=== PATIENT | male | born 1975 | race Caucasian/White ===

== ENCOUNTER 2018-01-10 11:09 | Inpatient (IN) | payer OTHER ==
[~2018-01-10] VITALS: Ht 185.4 cm; Wt 113.4 kg
[~2018-01-10 11:09] MED LIST: ADVIL200 M1 PO; CRESTOR10 M1 PO; DEXTROAMP-AMPHE20 MG PO; SUBOXONE 8 MG-1 EACH SL
[2018-01-10 12:19] LABS: ABSOLUTE BASOPHIL COUNT 0.1 /CUMM (0.0-0.2); ABSOLUTE EOSINOPHIL COUNT 0 /CUMM (0.0-0.7); ABSOLUTE GRANULOCYTE CT 14.7 /CUMM (1.4-6.5); ABSOLUTE LYMPH COUNT 2.1 /CUMM (1.2-3.4); ABSOLUTE MONOCYTE COUNT 1.2 /CUMM (0.10-0.60); BASOPHIL % 0.6 % (0.0-2.0); EOSINOPHIL % 0 % (0-5); GRANULOCYTE % 81.1 % (42.2-75.2); HEMATOCRIT 47.3 % (42-52); MEAN CORPUSCULAR HGB 27.2 PG (27.0-31.0); MEAN CORPUSCULAR HGB CONC 32.7 G/DL (33.0-37.0); MEAN CORPUSCULAR VOLUME 83.2 FL (80.0-94.0); MEAN PLATELET VOLUME 7.2 FL (7.4-10.4); PLATELET COUNT 316 /CUMM (130-400); RBC DISTRIBUTION WIDTH 14.6 % (11.5-14.5); RED BLOOD CELL CT 5.69 /CUMM (4.70-6.10); WHITE BLOOD CELL COUNT 18.1 /CUMM (4.8-10.8)
[2018-01-10 12:35] VITALS: BP 141/91
[2018-01-10] MEDS ORDERED: GABAPENTIN300 M2 PO (12:44)
[2018-01-10] MEDS ORDERED: TRAZODONE HCL100 M1 PO (12:44)
[2018-01-10] MEDS ORDERED: QUETIAPINE FUM200 M1 PO (12:44)
--- NOTE | 2018-01-10 14:20 | ED GENERAL ADULT ---
History of Present Illness General Chief Complaint: General Adult Stated Complaint: ETOH WITH DRAWL /? FLU/URI Source: patient, family Exam Limitations: no limitations Allergies Coded Allergies: No Known Allergies (02/26/16) Reconcile Medications Gabapentin 300 MG CAPSULE 1 CAP PO TID SEIZURES (Reported) Quetiapine Fumarate 200 MG TABLET 1 TAB PO QHS MENTAL HEALTH/SLEEP (Reported) Trazodone HCl 100 MG TABLET 1 TAB PO QHS MENTAL HEALTH/SLEEP (Reported) Triage Note: PT IS REQUESTING EVALUATION FOR ETOH DETOX. AN AVERAGE OF A GALLON OF WHISKEY FOR THE PAST WEEK. ALSO REPORTS DIARRHEA AND VOMITING X 2 DAYS. MULTIPLE FAMILY MEMBERS HAVE BEEN ILLED WITH THE SAME SYMPTOMS. Triage Nurses Notes Reviewed? yes Onset: Abrupt Duration: day(s): (1-2), constant, continues in ED, getting worse Timing: recent history Injury Environment: home Severity: moderate, severe No Modifying Factors: none HPI: 22-year-old male past medical history of alcohol dependence and bipolar disorder presents for evaluation requesting alcohol detox. Patient states that he has been drinking regularly for the past several months. He states he drinks a gallon of whiskey daily. He states that he drank a gallon of whiskey yesterday and this morning drank a bottle of Listerine. He reports that he does have a history of alcohol withdrawal seizures. He feels like he is in withdrawal now reporting anxiety headaches nausea vomiting and diarrhea. He is not suicidal or homicidal. No chest pain shortness of breath palpitations drug use. No hallucinations. No recent travel recent antibiotics. He does report sick contacts in his family with nausea vomiting and diarrhea. No abdominal pain. No fever. (Benedicto Zurita) Vital Signs & Intake/Output Vital Signs & Intake/Output Vital Signs Date Time Temp Pulse Resp B/P B/P Pulse O2 O2 Flow FiO2 Mean Ox Delivery Rate 01/10 1444 978.0 98 18 158/101 01/10 1235 97.9 115 18 141/91 01/10 1215 98 01/10 1115 97.9 115 16 141/91 Room Air (Dariana RICHARD,Jorge Varela) Past History Travel History Traveled to [place] past 21 day No Medical History Any Pertinent Medical History? see below for history Neurological: NONE EENT: NONE Cardiovascular: HIGH CHOLESTEROL Respiratory: NONE Gastrointestinal: NONE Hepatic: NONE Renal: NONE Musculoskeletal: NONE Psychiatric: bipolar disease (? ), opioid dependence, ADHD Endocrine: NONE Surgical History Surgical History: non-contributory Psychosocial History What is your primary language Mongolian Tobacco Use: Current Daily Use Daily Tobacco Use Amount/Type: => 5 Cigarettes daily Family History Hx Contributory? No (Benedicto Zurita) Review of Systems Review of Systems Constitutional: Reports: no symptoms. EENTM: Reports: no symptoms. Respiratory: Reports: no symptoms. Cardiovascular: Reports: no symptoms. GI: Reports: see HPI, diarrhea, nausea, vomiting. Genitourinary: Reports: no symptoms. Musculoskeletal: Reports: no symptoms. Skin: Reports: no symptoms. Neurological/Psychological: Reports: see HPI, headache. Hematologic/Endocrine: Reports: no symptoms. Immunologic/Allergic: Reports: no symptoms. All Other Systems: Reviewed and Negative (Benedicto Zurita) Physical Exam Physical Exam General Appearance: well developed/nourished, alert, awake, anxious, mild distress Head: atraumatic, normal appearance Eyes: Bilateral: normal appearance, PERRL, EOMI. Ears, Nose, Throat: normal pharynx, normal ENT inspection, hearing grossly normal Neck: normal inspection, supple, full range of motion Respiratory: normal breath sounds, chest non-tender, no respiratory distress, lungs clear Cardiovascular: regular rate/rhythm, normal peripheral pulses Peripheral Pulses: 2+ radial (R), 2+ radial (L) Gastrointestinal: normal bowel sounds, soft, non-tender, no organomegaly Back: normal inspection, normal range of motion, no vertebral tenderness Extremities: normal inspection, normal range of motion, no edema Neurologic/Psych: no motor/sensory deficits, awake, alert, oriented x 3, normal gait Skin: intact, normal color, warm/dry Lymphatic: no anterior cervical shilpa Core Measures ACS in differential dx? No CVA/TIA Diagnosis: No Sepsis Present: No Sepsis Focused Exam Completed? No (Benedicto Zurita) Progress Differential Diagnoses I considered the following diagnoses in my evaluation of the patient: [Alcohol withdrawal, alcohol intoxication, drug withdrawal, drug intoxication, electrolyte N O'Zhang, gastroenteritis, pancreatitis, alcoholic gastritis, alcoholic hepatitis] Initial ED EKG: none (Benedicto Zurita) Plan of Care: Orders Procedure Date/time Status Clear Liquid Diet 01/10 D Active Patient Data 01/10 1532 Active EKG 01/10 1532 Active Misc Message 01/10 1531 Active ED Holding Orders 01/10 1531 Active Admit to inpatient 01/10 1531 Active Vital Signs 01/10 1531 Active Code Status 01/10 1531 Active Add-on Test (ER Only) 01/10 1153 Active CIWA 01/10 1152 Active URINE DRUG SCREEN FOR ER ONLY 01/10 1119 Complete URINALYSIS 01/10 1119 Complete MAGNESIUM 01/10 1119 Complete LIPASE 01/10 1119 Complete ETHANOL 01/10 1119 Complete COMPREHENSIVE METABOLIC PANEL 01/10 1119 Complete CBC WITHOUT DIFFERENTIAL 01/10 1119 Complete Laboratory Tests 01/10/18 1212: Anion Gap 25 H, Estimated GFR > 60, BUN/Creatinine Ratio 13.8, Glucose 118 H, Calcium 9.3, Magnesium 2.3, Total Bilirubin 1.2, AST 80 H, ALT 69, Alkaline Phosphatase 129 H, Total Protein 7.7, Albumin 4.6, Globulin 3.1, Albumin/ Globulin Ratio 1.5, Lipase 50, CBC w Diff MAN DIFF ORDERED, RBC 5.69, MCV 83.2, MCH 27.2, MCHC 32.7 L, RDW 14.6 H, MPV 7.2 L, Gran % 81.1 H, Lymphocytes % 11.7 L, Monocytes % 6.6, Eosinophils % 0, Basophils % 0.6, Absolute Granulocytes 14.7 H, Absolute Lymphocytes 2.1, Absolute Monocytes 1.2 H, Absolute Eosinophils 0, Absolute Basophils 0.1, Platelet Estimate ADEQUATE, Normocytic RBCs VERIFIED, Normochromic RBCs VERIFIED, Serum Alcohol 135.0 01/10/18 1146: Urine Opiates Screen < 100, Methadone Screen < 40, Barbiturate Screen < 60, Ur Phencyclidine Scrn < 6.00, Amphetamines Screen 261, U Benzodiazepines Scrn < 85, Urine Cocaine Screen < 50, Urine Cannabis Screen 75.60 H, Urine Color YEL, Urine Clarity CLEAR, Urine pH 6.0, Ur Specific [place] >= 1.030, Urine Protein 30 H, Urine Ketones 15 H, Urine Nitrite NEG, Urine Bilirubin NEG, Urine Urobilinogen 0.2, Ur Leukocyte Esterase NEG, Ur Microscopic SEDIMENT EXAMINED, Urine RBC RARE, Urine WBC RARE, Ur Epithelial Cells RARE, Urine Bacteria RARE H , Hyaline Casts RARE H, Granular Casts 1-3 H, Urine Mucus MOD H, Urine Hemoglobin NEG, Urine Glucose NEG Patient seen and evaluated. He is here requesting alcohol detox. He is not suicidal or homicidal. He does note a history of alcohol withdrawal seizures. On initial evaluation patient is slightly tachycardic to the 1 teens she is actively vomiting reporting anxiety and headaches. Initial CIWA was 12. He was given 2 mg of IV Ativan IV fluids and will check basic labs. Blood work shows an alcohol level of 135. His potassium is low. He has an elevated white count. His belly is soft and nontender. He continues to vomit. Repeat CIWA is 15. Because of patient's history of alcohol withdrawal seizures and the CIWA level of 15 patient will be admitted to the hospital for further evaluation. He was monitored in the ER for 4-1/2 hours. With that initial alcohol level 135 SHOULD mean he is clinically sober now. Patient will be admitted to the hospital for further evaluation and treatment of alcohol withdrawal hypokalemia and dehydration. He will require IV fluids, serial labs, CIWA exams, IV Ativan and monitoring of vital signs case discussed with Dr. Westbrook he agrees (Benedicto Zurita) (Dariana RICHARD,Jorge Varela) Departure Departure Disposition: STILL A PATIENT Condition: Stable Clinical Impression Primary Impression: Alcohol withdrawal Qualifiers: Complication of substance-induced condition: uncomplicated Qualified Code: F10.230 - Alcohol dependence with withdrawal, uncomplicated Referrals: Patient Has No Primary Care Dr (PCP/Family) Departure Forms: Customer Survey General Discharge Information Admission Note Spoke With: Reed Sagastume MD Documentation of Exam: Documentation of any treatments & extenuating circumstances including Concerns Regarding Discharge (functional status, medication knowledge or non-compliance, living conditions, etc.) that warrant an admission rather than observation: [ CIWA exams, serial labs, IV fluids, anti-emetics, IV Ativan, monitoring of vital signs] (Benedicto Zurita) PA/WOOD GRAINER Co-Sign Statement Statement: ED Attending supervision documentation- [] I saw and evaluated the patient. I have also reviewed all the pertinent lab results and diagnostic results. I agree with the findings and the plan of care as documented in the PA's/WOOD GRAINER's documentation. [X] I have reviewed the ED Record and agree with the PA's/WOOD GRAINER's documentation. [] Additions or exceptions (if any) to the PAs/WOOD GRAINER's note and plan are summarized below: [] (Dariana RICHARD,Jorge Varela) Critical Care Note Critical Care Note Critical Care Time: non-applicable (Tyler CHEUNG,Benedicto)
[2018-01-10 14:44] VITALS: BP 158/101
--- NOTE | 2018-01-10 15:37 | History & Physical ---
Blake RICHARD,[facility] 01/10/18 1537: General Information and HPI MD Statement: I have seen and personally examined TIM CATHERINE and documented this H&P. The patient is a 42 year old M who presented with a patient stated chief complaint of {alcohol withdrawal]. Source of Information: patient Exam Limitations: not alert/orientated History of Present Illness: The patient is 42-year-old gentleman with past medical history of alcohol abuse disorder, alcohol withdrawal seizure, insomnia and depression He presented to [place] ED on 01/10 requesting detoxification Patient states that he drinks 1 gallon of whiskey everyday. Last drink was this morning. Patient admits to drinking heavily for past 1 week and lately has been requiring eyeopener everyday. Patient has been hospitalized once in the past year for alcohol detoxification at [facility]. Patient reports that he has never required an ICU admission. Does not give any history of delirium tremors however reports alcohol withdrawal seizures. Patient reports being overwhelmed and under a lot of stress. He lives by himself. He is in his son lives with his ex-. Patient reports having loose bowel movements for past few days. His son and multiple family members have been sick with stomach flu. He reports being very nauseous andalso reports a couple of episodes of vomiting at home as well. Patient states that he is on gabapentin because of alcohol withdrawal seizures started by his primary care doctor?. He is also on Quetiapine for depression. Denies any suicidal ideation or any homicidal ideation. Patient states that he smokes one pack a day and has been smoking for last 14 years also admits to occasional use of marijuana. Allergies/Medications Allergies: Coded Allergies: No Known Allergies (02/26/16) Home Med list Gabapentin 300 MG CAPSULE 1 CAP PO TID SEIZURES (Reported) Quetiapine Fumarate 200 MG TABLET 1 TAB PO QHS MENTAL HEALTH/SLEEP (Reported) Trazodone HCl 100 MG TABLET 1 TAB PO QHS MENTAL HEALTH/SLEEP (Reported) Past History Travel History Traveled to [place] past 21 day No Medical History Neurological: NONE EENT: NONE Cardiovascular: HIGH CHOLESTEROL Respiratory: NONE Gastrointestinal: NONE Hepatic: NONE Renal: NONE Musculoskeletal: NONE Psychiatric: bipolar disease (? ), opioid dependence, ADHD Endocrine: NONE Surgical History Surgical History: non-contributory Past Family/Social History Family History Relations & Conditions if any MOTHER (HLD). Psychosocial History Where do you live? Home Who Do You Live With? self Primary Language: Divehi Smoking Status: Current Everyday Smoker ETOH Use: alcoholic Illicit Drug Use: marijuana Functional Ability ADLs Independent: dressing, eating, toileting, bathing. Ambulation: independent IADLs Independent: shopping, housework, finances, food prep, telephone, transportation , medication admin. Review of Systems Review of Systems Constitutional: Reports: see HPI. Cardiovascular: Reports: no symptoms. Denies: chest pain, palpitations. GI: Reports: no symptoms. Exam & Diagnostic Data Last 24 Hrs of Vital Signs/I&O Vital Signs Date Time Temp Pulse Resp B/P B/P Pulse O2 O2 Flow FiO2 Mean Ox Delivery Rate 01/10 1444 978.0 98 18 158/101 01/10 1235 97.9 115 18 141/91 01/10 1215 98 01/10 1115 97.9 115 16 141/91 Room Air Intake & Output 01/10 1600 01/10 0800 01/10 0000 Intake Total 1000 Output Total Balance 1000 Intake, IV 1000 Patient 260 lb Weight Weight Reported by Patient Measurement Method Physical Exam General Appearance Alert, Oriented X3, Cooperative Skin No Rashes, No Breakdown HEENT Atraumatic Cardiovascular No Murmurs Lungs Clear to Auscultation, Normal Air Movement Abdomen Normal Bowel Sounds, Soft, No Tenderness Neurological Normal Speech, Strength at 5/5 X4 Ext, Normal Tone Last 24 Hrs of Labs/Severiano: Laboratory Tests 01/10/18 1212: Anion Gap 25 H, Estimated GFR > 60, BUN/Creatinine Ratio 13.8, Glucose 118 H, Calcium 9.3, Magnesium 2.3, Total Bilirubin 1.2, AST 80 H, ALT 69, Alkaline Phosphatase 129 H, Total Protein 7.7, Albumin 4.6, Globulin 3.1, Albumin/ Globulin Ratio 1.5, Lipase 50, CBC w Diff MAN DIFF ORDERED, RBC 5.69, MCV 83.2, MCH 27.2, MCHC 32.7 L, RDW 14.6 H, MPV 7.2 L, Gran % 81.1 H, Lymphocytes % 11.7 L, Monocytes % 6.6, Eosinophils % 0, Basophils % 0.6, Absolute Granulocytes 14.7 H, Absolute Lymphocytes 2.1, Absolute Monocytes 1.2 H, Absolute Eosinophils 0, Absolute Basophils 0.1, Platelet Estimate ADEQUATE, Normocytic RBCs VERIFIED, Normochromic RBCs VERIFIED, Serum Alcohol 135.0 01/10/18 1146: Urine Opiates Screen < 100, Methadone Screen < 40, Barbiturate Screen < 60, Ur Phencyclidine Scrn < 6.00, Amphetamines Screen 261, U Benzodiazepines Scrn < 85, Urine Cocaine Screen < 50, Urine Cannabis Screen 75.60 H, Urine Color YEL, Urine Clarity CLEAR, Urine pH 6.0, Ur Specific [place] >= 1.030, Urine Protein 30 H, Urine Ketones 15 H, Urine Nitrite NEG, Urine Bilirubin NEG, Urine Urobilinogen 0.2, Ur Leukocyte Esterase NEG, Ur Microscopic SEDIMENT EXAMINED, Urine RBC RARE, Urine WBC RARE, Ur Epithelial Cells RARE, Urine Bacteria RARE H , Hyaline Casts RARE H, Granular Casts 1-3 H, Urine Mucus MOD H, Urine Hemoglobin NEG, Urine Glucose NEG Diagnostic Data CXR Results IMPRESSION: No acute cardiopulmonary disease. Assessment/Plan Assessment: The patient is 42-year-old gentleman with past medical history of alcohol abuse disorder, alcohol withdrawal seizure, insomnia and depression He presented to [place] ED on 01/10 requesting detoxification Vitals on presentation tachycardic at 115 elevated blood pressure 141/91 Admission labs are significant for leukocytosis 18.1, no bands, hypokalemia, transaminitis mild AST 80 alkaline phosphate 129, serum alcohol 135, urine cannabis screen positive The patient is being admitted to general medicine floor and he will be treated and evaluated for following conditions #Alcohol detoxification -Monitoring vitals -CIWA -Ativan per CIWA -Ativan 2 mg q8 -Multivitamin -Folic acid -Thiamine -Social work consult -Psych evaluation -Monitor for DTs and withdrawal seizures #Hypokalemia Likely secondary to alcohol abuse disorder -Monitor and replete #Mild transaminitis Likely secondary to alcohol abuse disorder -Monitor LFTs -Any complaints or symptoms or worsening LFTs consider right upper quadrant ultrasound #Leukocytosis likely secondary to gastroenteritis Patient is afebrile, reported nausea vomiting sick contacts can be 2/2 gastroentritis, no urinary symptoms and UA is negative for leukoesterase. -Monitor fever WBC curve -Get a baseline chest x-ray to rule out aspiration with alcohol abuse disorder -Blood cultures 2 -Monitor off antibiotics for now #Metabolic acidosis secondary to alcoholic ketoacidosis. Patient has elevated anion gap up to 25 -Check lactic acid levels -Continue to monitor -IV hydration with LR #Hypertension Likely secondary to withdrawal -Continue to monitor -Consider 5 mg at amlodipine is significantly elevated #Tachycardia Again likely secondary to alcohol withdrawal Continue to monitor #Substance abuse disorder UA was positive for cannabis #Chronic medical conditions Insomnia, seizures and history of depression -We are going to continue gabapentin and quetiapine -Trazodone on hold patient will be on high doses of BDZs Regular diet/DVT prophylaxis with Lovenox and Alps/full code As Ranked By This Provider Problem List: 1. Alcohol withdrawal Qualifiers Complication of substance-induced condition: uncomplicated Qualified Code: F10.230 - Alcohol dependence with withdrawal, uncomplicated 2. Alcohol abuse Core Measures/Misc (06/14) Acute Coronary Syndrome ACS Diagnosis: No Congestive Heart Failure Congestive Heart Failure Diagnosis No Cerebrovascular Accident CVA/TIA Diagnosis: No VTE (View Protocol) VTE Risk Factors Age>40 No Mechanical VTE Prophylaxis d/t N/A MechProphylax Ordered No VTE Pharm Prophylaxis d/t NA PharmProphylax ordered Sepsis (View protocol) Sepsis Present: No Ashvin RICHARD,Lucien 01/10/18 1615: Core Measures/Misc (06/14) Acute Coronary Syndrome ACS Diagnosis: No Congestive Heart Failure Congestive Heart Failure Diagnosis No Cerebrovascular Accident CVA/TIA Diagnosis: No VTE (View Protocol) VTE Risk Factors No risk factors No VTE Pharm Prophylaxis d/t NA PharmProphylax ordered Sepsis (View protocol) Sepsis Present: No Resident Review Statement Resident Statement: examined this patient, discussed with fashion intern, agreed with fashion intern Other Findings: 42-year-old gentleman with a past medical history of EtOH abuse,with reported withdrawal sizure hx, and depression, presents to [place] ED requesting detox . His serum etoh level on presentation was 135. Impression * Etoh Intoxication as evident by patient account of daily drinking and a serum level of 135. * Leukocytosis * Metabolic acidosis secondary to alcoholic ketoacidosis. * Hypokalemia, secondary to metabolic acidosis hypokalemia from metabolic. Plan Admit to general medicine Lorazepam 2 mg every 6h CIWA monitoring When necessary symptom triggered Ativan dosing Multivitamin, thiamine and folate Past bedside swallow eval Careful monitoring of electrolytes, especially given that alcoholic ketoacidosis can present with electrolyte derangements and especially rapidly lowering of phosphate level up on feeding Social consult tomorrow morning so Reed Sagastume MD 01/10/18 1622: Attending MD Review Statement Attending Statement Attending MD Statement: examined this patient, discuss w/resident/PA/WOOD TANK ERECTOR, agreed w/resident/PA/WOOD TANK ERECTOR, reviewed EMR data (avail) Attending Assessment/Plan: 42M with EtOH abuse here with withdrawal, history of withdrawal seizure, CIWA 15 in ED, to be admitted for alcohol withdrawal. Ativan standing and PRN, monitor electrolytes, social work consult.
[2018-01-10 16:24] VITALS: BP 153/76
--- NOTE | 2018-01-10 17:13 | RADIOLOGY REPORT ---
EXAMINATION: XR CHEST CLINICAL INFORMATION: 42-year-old male with leukocytosis, EtOH withdrawal. Suspected aspiration pneumonia. COMPARISON: None TECHNIQUE: 2 views of the chest were obtained. FINDINGS: Both lungs are symmetrically expanded, and appear clear. The cardiomediastinal silhouette is within normal limits. There is no pleural effusion or pneumothorax present. The visualized upper abdomen is unremarkable. IMPRESSION: No acute cardiopulmonary disease.
[2018-01-10 18:46] VITALS: BP 136/92
[2018-01-10 19:34] VITALS: BP 158/72
[2018-01-10 22:21] VITALS: BP 130/84
[2018-01-11] VITALS (15 sets, daily range): BP systolic 130–170; BP diastolic 84–110
--- NOTE | 2018-01-11 07:31 | PN- Housestaff ---
Juliet RICHARD,Dennis 01/11/18 0730: Subjective Follow-up For: Alcohol withdrawal Leukocytosis Metabolic acidosis secondary to alcoholic ketoacidosis Hypokalemia Hypertension Subjective: Patient was seen and examined today. Patient reports dizziness, lightheadedness. Reports he was initially confused however now is alert and oriented 3. Patient reports pain with swallowing. Denies any dysphagia. Reports nausea. Denies vomiting, hematemesis. Denies chest pain or shortness of breath. Reports palpitations. Denies auditory, tactile, visual hallucinations. Denies suicidal or homicidal ideations. Patient CIWA max over the past 24 hours was 17. Patient required 6 mg of when necessary Ativan. Review of Systems Constitutional: Reports: see HPI. Objective Last 24 Hrs of Vital Signs/I&O Vital Signs Date Time Temp Pulse Resp B/P B/P Pulse O2 O2 Flow FiO2 Mean Ox Delivery Rate 01/11 1124 98.5 98 20 160/95 94 Room Air 01/11 0917 98.8 101 20 155/100 96 Room Air 01/11 0625 99.3 104 20 160/110 93 Room Air 01/11 0600 99.1 104 20 160/106 01/11 0500 99.1 106 20 152/90 01/11 0400 99.1 100 20 152/90 01/11 0300 99.0 106 20 152/90 01/11 0207 99.1 111 20 152/90 94 Room Air 01/11 0200 99.1 110 20 152/90 01/11 0000 99.8 98 20 130/84 01/10 2221 100.0 98 20 130/84 95 Room Air 01/10 1934 99.5 98 20 158/72 94 Room Air 01/10 1846 98.1 95 18 136/92 01/10 1844 98.1 95 18 136/92 96 Room Air 01/10 1624 98.8 97 17 153/76 01/10 1624 98.8 97 17 153/76 96 Room Air 01/10 1444 978.0 98 18 158/101 Intake & Output 01/11 1600 01/11 0800 01/11 0000 Intake Total 360 300 Output Total Balance 360 300 Intake, Oral 360 300 Patient 250 lb Weight Physical Exam General Appearance: Alert, Oriented X3, Cooperative, No Acute Distress HEENT: Atraumatic, Mucous Membr. moist/pink Cardiovascular: Regular Rate, Normal S1, Normal S2 Lungs: Clear to Auscultation, Normal Air Movement Abdomen: Normal Bowel Sounds, Soft, No Tenderness Neurological: Normal Speech, Cranial Nerves 3-12 NL Extremities: No Clubbing, No Cyanosis, No Edema, Normal Pulses, No Tenderness/ Swelling Vascular: Normal Pulses, Pulses Symmetrical Current Medications: Current Medications Sig/Marielos Start time Last Medication Dose Route Stop Time Status Admin Enoxaparin Sodium 40 MG DAILY 01/11 0900 AC 01/11 SC 0836 Folic Acid 0 .STK-MED ONE 01/10 1618 DC PO Folic Acid 1 MG DAILY 01/10 1604 AC 01/11 PO 01/12 0901 0836 Gabapentin 300 MG TID 01/10 2200 AC 01/11 PO 0836 Lactated Ringer's 1,000 ML Q8H 01/11 1200 AC 01/11 IV 01/11 1959 1202 Lorazepam 2 MG Q4 01/11 1000 AC 01/11 PO 0946 Lorazepam 0 .STK-MED ONE 01/10 1859 DC .ROUTE Lorazepam 0 .STK-MED ONE 01/10 1814 DC PO Lorazepam 2 MG Q6 01/10 1800 DC 01/11 PO 0625 Lorazepam 0 .STK-MED ONE 01/10 1646 DC .ROUTE Lorazepam 2 MG Q2P PRN 01/10 1615 AC 01/10 IV 1851 Lorazepam 1 MG Q2P PRN 01/10 1615 AC 01/11 IV 0840 Lorazepam 0 .STK-MED ONE 01/10 1452 DC .ROUTE Lorazepam 2 MG ONE ONE 01/10 1445 DC 01/10 IV 01/10 1446 1444 Multivitamins 0 .STK-MED ONE 01/10 1618 DC PO Multivitamins 1 TAB DAILY 01/10 1604 AC 01/11 PO 0836 Omeprazole 40 MG DAILY AC 01/11 1200 AC 01/11 PO 1205 Phosphate 250 MG WM 01/10 2048 AC 01/11 PO 1204 Potassium Chloride 40 MEQ .STK-MED ONE 01/10 1643 DC PO 01/10 1644 Potassium Chloride 40 MEQ ONCE ONE 01/10 1615 DC 01/10 PO 01/10 1616 1640 Potassium Chloride 0 .STK-MED ONE 01/10 1548 DC PO Quetiapine Fumarate 200 MG QPM 01/11 2100 AC PO Quetiapine Fumarate 200 MG ONCE ONE 01/10 2215 DC 01/10 PO 01/11 2216 225 Thiamine HCl 0 .STK-MED ONE 01/10 1618 DC PO Thiamine HCl 100 MG DAILY 01/10 1604 AC 01/11 PO 01/12 0901 0836 Trazodone HCl 100 MG 01/11 AC PO Trazodone HCl 100 MG ONCE ONE 01/10 2215 DC 01/10 PO 01/10 Last 24 Hrs of Lab/Severiano Results Last 24 Hrs of Labs/Mics: Laboratory Tests 01/11/18 0804: Anion Gap 12, Estimated GFR > 60, BUN/Creatinine Ratio 12.5, Phosphorus 2.7 Assessment/Plan Assessment: Patient is a 42-year-old male with past medical history of alcohol abuse, history of alcohol withdrawal, insomnia, depression presenting this admission with complaint of alcohol withdrawal. The patient has been drinking heavily over the past one week with approximately 1 gallon of whiskey daily. Patient's last drink was on day of admission. Patient reports history of alcohol seizures with no history of ICU admission for alcohol withdrawal. Patient was last treated at [facility] for alcohol withdrawal over the past year. Assessment: Today patient remains tachycardic, hypertensive with CIWA scores of 17 max over the past 24 hours requiring multiple doses of when necessary Ativan. Patient is in no acute respiratory distress and is saturating well on room air. Patient had a leukocytosis of 18 on admission. Patient has been afebrile off antibiotics and steroids. No signs of infection at this time. Leukocytosis most likely reactive. Patient complains of odynophagia and nausea with no other alarm symptoms. Patient's odynophagia is likely secondary to esophagitis/ gastritis in the setting of alcohol abuse. Patient is admisted to general medical floor for management of the following: Plan: #Alcohol detoxification -Monitoring vitals -CIWA -Ativan per CIWA -Increased standing dose to ativan 2mg q4h -Multivitamin -Folic acid -Thiamine -Social work consult placed -Monitor for DTs and withdrawal seizures #Hypokalemia - resolved Likely secondary to alcohol abuse disorder -Monitor and replete as needed #Mild transaminitis Likely secondary to alcohol abuse disorder -Monitor LFTs -Any complaints or symptoms or worsening LFTs consider right upper quadrant ultrasound #Leukocytosis likely reactive Patient is afebrile, reported nausea vomiting sick contacts can be 2/2 gastroentritis, no urinary symptoms and UA is negative for leukoesterase. Patient's CXR is negative for any acute cardiopulmonary process. No signs of infection. Patient remains afebrile -Monitor WBC and fever -Monitor off antibiotics for now #Metabolic acidosis secondary to alcoholic ketoacidosis- resolved Patient's anion gap now normal. Lactic acidosis resolved. -IV LR @ 125 cc/hr x 1 bag -Continue to monitor #Hypertension Likely secondary to withdrawal -Continue to monitor -Consider 5 mg at amlodipine is significantly elevated #Tachycardia Again likely secondary to alcohol withdrawal Continue to monitor #Substance abuse disorder UA was positive for cannabis #Chronic medical conditions Insomnia, seizures and history of depression -We are going to continue gabapentin and quetiapine -Trazodone on hold patient will be on high doses of BDZs #Tobacco dependence - nicotine patch Problem List: 1. Alcohol withdrawal 2. Alcohol abuse Pain Ratin Pain Location: n/a Pain Goal: Remain pain free Pain Plan: tylenol PRN - do not go over 2gm Tomorrow's Labs & Rationales: CBC - leukocytosis CMP - electrolytes, LFTs Chanel Donnelly MD 01/11/18 1200: Attending MD Review Statement Attending Statement Attending MD Statement: examined this patient, discuss w/resident/PA/METAL TURNER, agreed w/resident/PA/METAL TURNER, reviewed EMR data (avail), discussed with nursing, discussed with case mgmt, amended to note Attending Assessment/Plan: Patient seen and examined. He is mildly anxious. Although CIWA score has improved he does remain elevated. He required a total of 4 mg of as needed Ativan intravenously yesterday and 2 mg so far today. He is alert and oriented to 2 mg orally every 4 hours a monitoring patient closely. Recommend hydration with lactated Ringer's. Continue to monitor response to therapy all through today. Repeat serum chemistry in a.m. to reevaluate his electrolyte level and CBC to monitor for improvement of his leukocytosis which is likely reactive.
[2018-01-12] VITALS (9 sets, daily range): BP systolic 140–150; BP diastolic 88–110
--- NOTE | 2018-01-12 07:18 | PN- Housestaff ---
Blake RICHARD,[facility] 01/12/18 0718: Subjective Follow-up For: Alcohol withdrawal Leukocytosis Metabolic acidosis secondary to alcoholic ketoacidosis Hypokalemia Hypertension Subjective: Pt has been seen and examined. resting comfortably. Complaining of pain with swallowing, most likely secondary to esophagitis/gastritis due to alcohol abuse. CIWA 1-9 on 2 mg every 4 Ativan required 3 mg IV Ativan for 24 hours Review of system otherwise negative. Denies fevers chills or nausea. Patient was hypertensive and was tachycardiac, overnight secondary to alcohol withdrawal. Review of Systems Constitutional: Reports: see HPI. Objective Last 24 Hrs of Vital Signs/I&O Vital Signs Date Time Temp Pulse Resp B/P B/P Pulse O2 O2 Flow FiO2 Mean Ox Delivery Rate 01/12 0600 97.2 84 20 144/90 91 Room Air 01/12 0200 99.8 83 20 150/108 01/12 0154 99.8 83 20 150/108 91 Room Air 01/12 0000 99.6 96 20 148/88 01/11 2258 99.6 96 20 148/88 97 Room Air 01/11 2200 99.6 96 20 148/88 01/11 2000 95 20 170/90 01/11 1831 98.4 95 18 170/90 97 Room Air 01/11 1502 98.6 94 20 160/88 95 01/11 1124 98.5 98 20 160/95 94 Room Air 01/11 0917 98.8 101 20 155/100 96 Room Air Intake & Output 01/12 1600 01/12 0800 01/12 0000 Intake Total 480 1600 Output Total Balance 480 1600 Intake, IV 1000 Intake, Oral 480 600 Physical Exam General Appearance: Alert, Oriented X3, Cooperative Cardiovascular: Normal S1, Normal S2 Lungs: Clear to Auscultation, Normal Air Movement Abdomen: Normal Bowel Sounds, Soft Neurological: Normal Speech Current Medications: Current Medications Sig/Marielos Start time Last Medication Dose Route Stop Time Status Admin Acetaminophen 325 MG Q6P PRN 01/11 1430 AC PO Enoxaparin Sodium 40 MG DAILY 01/11 0900 AC 01/11 SC 0836 Folic Acid 1 MG DAILY 01/10 1604 AC 01/11 PO 01/12 0901 0836 Gabapentin 300 MG TID 01/10 2200 AC 01/11 PO 2101 Lactated Ringer's 1,000 ML Q8H 01/11 1200 DC 01/11 IV 01/11 1959 1202 Lidocaine/Diphenhydr/ 15 ML BID 01/11 1418 AC 01/11 Alum/Mg/Simeth PO 1733 Lorazepam 2 MG Q4 01/11 1000 AC 01/12 PO 0611 Lorazepam 2 MG Q6 01/10 1800 DC 01/11 PO 0625 Lorazepam 2 MG Q2P PRN 01/10 1615 AC 01/10 IV 1851 Lorazepam 1 MG Q2P PRN 01/10 1615 AC 01/11 IV 0840 Multivitamins 1 TAB DAILY 01/10 1604 AC 01/11 PO 0836 Nicotine 14 MG DAILY 01/11 1412 AC 01/11 TOP 1733 Omeprazole 40 MG DAILY AC 01/11 1200 AC 01/12 PO 0611 Phosphate 250 MG WM 01/10 2048 AC 01/11 PO 1733 Quetiapine Fumarate 200 MG QPM 01/11 2100 AC 01/11 PO 2101 Thiamine HCl 100 MG DAILY 01/10 1604 AC 01/11 PO 01/12 0901 0836 Trazodone HCl 100 MG 2100 01/11 2100 AC 01/11 PO 2101 Assessment/Plan Assessment: Patient is a 42-year-old male with past medical history of alcohol abuse, history of alcohol withdrawal, insomnia, depression presenting this admission with complaint of alcohol withdrawal. The patient has been drinking heavily over the past one week with approximately 1 gallon of whiskey daily. Patient's last drink was on day of admission. Patient reports history of alcohol seizures with no history of ICU admission for alcohol withdrawal. Patient was last treated at [facility] for alcohol withdrawal over the past year. Patient is admisted to general medical floor for management of the following: #Alcohol detoxification -Monitoring vitals -CIWA 1-9 -Ativan per CIWA -Ativan decrease to 1.5mg q6 -Multivitamin -Folic acid -Thiamine -Social work consult placed -Monitor for DTs and withdrawal seizures #Odynophagia Patient's odynophagia is likely secondary to errosive esophagitis/gastritis in the setting of alcohol abuse. The patient gives history of getting endoscopy in October 2017 when he was admitted at [facility] for her alcohol detoxification for similar complaints odynophagia. We are going to request records. As per patient he was maintained on omeprazole. -Request records from [facility] -PPI -if no improvement will consult GI #Hypokalemia Likely secondary to alcohol abuse disorder -Monitor and replete as needed #Drop in H&H Patient's H&H has dropped from 15.5/47 to 14/40. All cell lines are down likely dilutional, received one bag of Ringer lactate. -Continue to monitor #Mild transaminitis-resolved Likely secondary to alcohol abuse disorder -Monitor LFTs -If any symptoms or worsening LFTs consider right upper quadrant ultrasound #Leukocytosis likely reactive-resolved Patient is afebrile, reported nausea vomiting sick contacts can be 2/2 gastroentritis, no urinary symptoms and UA is negative for leukoesterase. Patient's CXR is negative for any acute cardiopulmonary process. No signs of infection. Patient remains afebrile -Monitor WBC and fever -Monitor off antibiotics for now #Metabolic acidosis secondary to alcoholic ketoacidosis- resolved Patient's anion gap now normal. Lactic acidosis resolved. -IV LR @ 125 cc/hr x 1 bag #Hypertension Likely secondary to withdrawal -Continue to monitor -Consider 5 mg at amlodipine is significantly elevated #Tachycardia Again likely secondary to alcohol withdrawal -Continue to monitor #Substance abuse disorder UA was positive for cannabis #Tobacco dependence - nicotine patch #Chronic medical conditions Insomnia, seizures and history of depression -Continue gabapentin,quetiapine, Trazodoen #Regular diet/DVT prophylaxis with Lovenox and Alps/full code Problem List: 1. Alcohol withdrawal Pain Ratin Pain Location: n/a Pain Goal: Pain 4 or less Pain Plan: prn Tomorrow's Labs & Rationales: bep for electrolytes CBC Cony RICHARD,Chanel 01/12/18 1131: Attending MD Review Statement Attending Statement Attending MD Statement: examined this patient, discuss w/resident/PA/POWDER CARRIER, agreed w/resident/PA/POWDER CARRIER, reviewed EMR data (avail), discussed with nursing, discussed with case mgmt, amended to note Attending Assessment/Plan: Patient seen and examined. Resting comfortably not in any acute distress. No issues overnight reported by nursing staff. CIWA scores continued to improve although mildly elevated this morning. after adjusting his benzodiazepine regimen yesterday he required only 1 mg of IV Ativan in addition to the 2 mg had received very early in the morning yesterday. He is alert and oriented 3. Is conversant appropriately. He is not agitated. He is not tremulous. He continues to complain of odynophagia. He reports that he has had an EGD earlier this year. At that time he was reported to have had esophagitis. He was placed on the PPI. Recommendations: -Wean down Ativan to 1.5 mg every 4 hours today. -Mobilize patient as tolerated. -Continue PPI therapy. -If odynophagia persists may consider evaluation by the gastroenterology service for repeat EGD to rule out ulcerations. -Obtain records of previous EGD. -Supplement potassium orally. -Repeat CBC and serum chemistry tomorrow if there is a change in his clinical condition.
[2018-01-12 09:27] LABS: ABSOLUTE BASOPHIL COUNT 0 /CUMM (0.0-0.2); ABSOLUTE EOSINOPHIL COUNT 0.1 /CUMM (0.0-0.7)
[2018-01-12 09:53] LABS: ABSOLUTE GRANULOCYTE CT 4.6 /CUMM (1.4-6.5); ABSOLUTE MONOCYTE COUNT 0.5 /CUMM (0.10-0.60); BASOPHIL % 0.5 % (0.0-2.0); EOSINOPHIL % 1.7 % (0-5); GRANULOCYTE % 62.9 % (42.2-75.2); MEAN CORPUSCULAR HGB 28.8 PG (27.0-31.0); MEAN CORPUSCULAR HGB CONC 34.9 G/DL (33.0-37.0); MEAN CORPUSCULAR VOLUME 82.7 FL (80.0-94.0); MEAN PLATELET VOLUME 7.6 FL (7.4-10.4); PLATELET COUNT 205 /CUMM (130-400); RBC DISTRIBUTION WIDTH 14.6 % (11.5-14.5); RED BLOOD CELL CT 4.81 /CUMM (4.70-6.10)
[2018-01-12 09:58] LABS: HEMATOCRIT 39.8 % (42-52); WHITE BLOOD CELL COUNT 7.3 /CUMM (4.8-10.8)
[2018-01-12] MEDS ORDERED: OMEPRAZOLE40 M1 PO (14:30)
[2018-01-12] MEDS ORDERED: ONE DAILY MULT1 EAC2 PO (14:30)
[2018-01-13] VITALS (11 sets, daily range): BP systolic 128–180; BP diastolic 80–98
--- NOTE | 2018-01-13 07:17 | Patient Discharge Instructions ---
Discharge Instructions General Discharge Information You were seen/treated for: Alcohol detoxification Watch for these problems: Fever, shortness of breath, chest pain, urinary symptoms Special Instructions: Please follow-up with her family care doctor after discharge Diet Continue normal diet: Yes Activity Full Activity/No Limits: Yes Acute Coronary Syndrome Inclusion Criteria At DC or during hospital stay patient has or had the following: ACS DIAGNOSIS No Discharge Core Measures Meds if any: Prescribed or Continued at Discharge Meds if any: NOT Prescribed or Continued at Discharge Congestive Heart Failure Inclusion Criteria At DC or during hospital stay patient has or had the following: CHF DIAGNOSIS No Discharge Core Measures Meds if any: Prescribed or Continued at Discharge Meds if any: NOT Prescribed or Continued at Discharge Cerebrovascular accident Inclusion Criteria At DC or during hospital stay patient has or had the following: CVA/TIA Diagnosis No Discharge Core Measures Meds if any: Prescribed or Continued at Discharge Meds if any: NOT Prescribed or Continued at Discharge Venous thromboembolism Inclusion Criteria VTE Diagnosis No VTE Type NONE VTE Confirmed by (Test) NONE Discharge Core Measures - Per Current guidelines, there needs to be overlap - treatment for the first 5 days of Warfarin therapy. - If discharged on Warfarin prior to 5 days of - overlap therapy, the patient will need to be - assessed for post discharge needs including - *Post discharge parental anticoagulation - *Warfarin and/or parental anticoagulation education - *Follow up date to check INR post discharge At least 5 days overlap therapy as Inpatient No Meds if any: Prescribed or Continued at Discharge Note: Overlap Therapy is Warfarin and Anticoagulant Meds if any: NOT Prescribed or Continued at Discharge
--- NOTE | 2018-01-13 08:13 | PN- Housestaff ---
See Addendum Subjective Follow-up For: Alcohol withdrawal Leukocytosis Metabolic acidosis secondary to alcoholic ketoacidosis Hypokalemia Hypertension Subjective: Pt has been seen and examined. States that painful swallowing is not better. Review of system is otherwise negative no overnight acute events CIWA 1-7 on 1.5 mg q4 Ativan required no IV Ativan for 24 hours Patient was hypertensive and was tachycardiac, overnight secondary to alcohol withdrawal. patient wants to follow up with AA. Does not want to go through inpatient detoxification program. Patient has been counseled to follow-up at [facility] program referral will be providedon discharge Review of Systems Constitutional: Reports: see HPI. Objective Last 24 Hrs of Vital Signs/I&O Vital Signs Date Time Temp Pulse Resp B/P B/P Pulse O2 O2 Flow FiO2 Mean Ox Delivery Rate 01/13 0637 97.9 77 20 144/92 95 Room Air 01/13 0600 97.9 77 20 144/92 01/13 0400 98.9 79 20 132/80 01/13 0208 98.9 79 20 132/80 93 Room Air 01/13 0200 98.9 79 20 132/80 01/13 0000 98.2 100 20 140/90 01/12 2147 98.2 108 20 140/90 96 01/12 1447 98.2 90 18 150/100 95 Room Air 01/12 1400 150/100 Intake & Output 01/13 1600 01/13 0800 01/13 0000 Intake Total 500 480 Output Total Balance 500 480 Intake, Oral 500 480 Physical Exam General Appearance: Alert, Oriented X3, Cooperative Cardiovascular: Normal S1, Normal S2 Lungs: Clear to Auscultation Abdomen: Soft Neurological: Normal Speech Current Medications: Current Medications Sig/Marielos Start time Last Medication Dose Route Stop Time Status Admin Acetaminophen 325 MG Q6P PRN 01/11 1430 AC PO Enoxaparin Sodium 40 MG DAILY 01/11 0900 AC 01/13 SC 0748 Gabapentin 300 MG TID 01/10 2200 AC 01/13 PO 0748 Lidocaine/Diphenhydr/ 15 ML BID 01/11 1418 AC 01/13 Alum/Mg/Simeth PO 0747 Lorazepam 1 MG Q4 01/13 1000 AC 01/13 PO 0749 Lorazepam 1.5 MG Q4 01/12 1000 DC 01/13 PO 0558 Lorazepam 2 MG Q2P PRN 01/10 1615 AC 01/10 IV 1851 Lorazepam 1 MG Q2P PRN 01/10 1615 AC 01/11 IV 0840 Multivitamins 1 TAB DAILY 01/10 1604 AC 01/13 PO 0747 Nicotine 14 MG DAILY 01/11 1412 AC 01/13 TOP 0748 Omeprazole 40 MG DAILY AC 01/11 1200 AC 01/13 PO 0558 Phosphate 250 MG WM 01/10 2048 AC 01/13 PO 0747 Potassium Chloride 40 MEQ BID 01/13 2100 AC PO 01/14 0901 Potassium Chloride 40 MEQ BID 01/12 0950 DC 01/12 PO 01/12 Quetiapine Fumarate 200 MG QPM 01/11 2100 AC 01/12 PO 204 Trazodone HCl 100 MG 2100 01/11 2100 AC 01/12 PO 2043 Last 24 Hrs of Lab/Severiano Results Last 24 Hrs of Labs/Mics: Laboratory Tests 01/13/18 0745: Anion Gap 9, Estimated GFR > 60, BUN/Creatinine Ratio 13.8 Assessment/Plan Assessment: Patient is a 42-year-old male with past medical history of alcohol abuse, history of alcohol withdrawal, insomnia, depression presenting this admission with complaint of alcohol withdrawal. The patient has been drinking heavily over the past one week with approximately 1 gallon of whiskey daily. Patient's last drink was on day of admission. Patient reports history of alcohol seizures with no history of ICU admission for alcohol withdrawal. Patient was last treated at [facility] for alcohol withdrawal over the past year. Patient is admisted to general medical floor for management of the following: #Alcohol detoxification -Monitoring vitals -CIWA 1-7 -Ativan per CIWA -Ativan decrease to 1 mg TID -Multivitamin -Folic acid -Thiamine -Social work consult, patient wants to follow up with AA. Does not want to go through inpatient detoxification program. Patient has been counseled to follow- up at [facility] program referral will be providedon discharge -Monitor for DTs and withdrawal seizures #Odynophagia Patient's odynophagia is likely secondary to errosive esophagitis/gastritis in the setting of alcohol abuse. The patient gives history of getting endoscopy in October 2017 when he was admitted at [facility] for her alcohol detoxification for similar complaints odynophagia. We are going to request records. As per patient he was maintained on omeprazole. -records request sent to [facility], awating results - Continue PPI -if no improvement will consult GI/outpatient GI follow-up #Hypokalemia Likely secondary to alcohol abuse disorder -Monitor and replete as needed #Drop in H&H Patient's H&H has dropped from 15.5/47 to 14/40. All cell lines are down likely dilutional, received one bag of Ringer lactate. -Continue to monitor #Mild transaminitis-resolved Likely secondary to alcohol abuse disorder -Monitor LFTs -If any symptoms or worsening LFTs consider right upper quadrant ultrasound #Leukocytosis likely reactive-resolved Patient is afebrile, reported nausea vomiting sick contacts can be 2/2 gastroentritis, no urinary symptoms and UA is negative for leukoesterase. Patient's CXR is negative for any acute cardiopulmonary process. No signs of infection. Patient remains afebrile -Monitor WBC and fever -Monitor off antibiotics for now #Metabolic acidosis secondary to alcoholic ketoacidosis- resolved Patient's anion gap now normal. Lactic acidosis resolved. -IV LR @ 125 cc/hr x 1 bag #Hypertension Likely secondary to withdrawal -Continue to monitor -Consider 5 mg at amlodipine is significantly elevated #Tachycardia Again likely secondary to alcohol withdrawal -Continue to monitor #Substance abuse disorder UA was positive for cannabis #Tobacco dependence - nicotine patch #Chronic medical conditions Insomnia, seizures and history of depression -Continue gabapentin,quetiapine, Trazodoen #Regular diet/DVT prophylaxis with Lovenox and Alps/full code Problem List: 1. Alcohol withdrawal Pain Ratin Pain Location: n/a Pain Goal: Pain 4 or less Pain Plan: prn Tomorrow's Labs & Rationales: none
--- NOTE | 2018-01-13 13:44 | Discharge Summary ---
Visit Information Visit Dates Admission Date: 01/10/18 Discharge Date: 01/16/18 Hospital Course Course Attending Physician: Chanel Donnelly MD Primary Care Physician: Patient Has No Primary Care Dr Hospital Course: The patient is 42-year-old gentleman with past medical history of alcohol abuse disorder, alcohol withdrawal seizure per pt, insomnia and depression He [facility]10 requesting detoxification. Patient reported that he drinks 1 gallon of whiskey every day and has been drinking heavily for the past 1 week. His last admission for alcohol detoxification was in October 2016 in [place]. He did not give history of delirium tremors, ICU admission but reported alcohol withdrawal seizures in the past Vitals on presentation tachycardic at 115 elevated blood pressure 141/91 Admission labs were significant for leukocytosis 18.1, no bands, hypokalemia, transaminitis AST 80 alkaline phosphate 129, serum alcohol 135, urine cannabis screen positive The patient was admitted to the general medicine floor for alcohol detoxification. He was started on Ativan standing dose and IV PRN along with thiamine, folate and multivitamin. His CIWA score ran in lower range and he was tapered off Ativan. He had leukocytosis on presentation which was likely reactive no obvious source of infection was found and WBC count trended down to normal the next day. He did give history of stomach flu and having sick contacts around him. His electrolytes were monitored and was found to have hypokalemia which was repleted accordingly. His admission labs were also significant for metabolic acidosis secondary to alcoholic ketoacidosis he was treated with IV lactated Ringer 1 bag and his anion gap closed and lactic acidosis resolved. Patient had a drop in in H&H from 15.5/47 to 14/40 which was most likely secondary to IV hydration because all cell lines went down. He also had transaminitis on presentation most likely to alcohol abuse disorder which resolved later. Patient ran tachycardic and was bit hypersensitive during his stay most likely secondary to alcohol withdrawal. Patient also complained of odynophagia most likely due to erosive esophagitis/gastritis secondary to alcohol abuse. He gave history of getting endoscopy for similar complaints, in [place] in October 2016 when he was admitted for alcohol detoxification. We are still awaiting records. Patient was started on omeprazole and was instructed to follow-up with gastroenterology as an outpatient. His urine was positive for cannabis on presentation and he also gives history of tobacco dependence and was maintained on nicotine patch. -Patient was extensively counseled on alcohol abstinence. bulk intake worker evaluated the patient as well. He refused inpatient rehabilitation and decided to follow-up with Alcoholics Anonymous. He has also been provided with a referral for shailesh WARREN. -Patient has also been provided referrals for outpatient GI evaluation He was full code and his home medications of gabapentin,quetiapine, Trazodone were continued He was provided referral for PCP on discharge Allergies: Coded Allergies: No Known Allergies (02/26/16) Disposition Summary Disposition Principal Diagnosis: Alcohol detoxification Additional Diagnosis: hypokalemia Discharge Disposition: home or self care Discharge Instructions General Discharge Information Code Status: Full Code Patient's Diet: regualr Patient's Activity: As tolerated Follow-Up Instructions/Appts: Follow up with primary care, gastroentrology and AA Medications at Discharge Discharge Medications: Continue taking these medications: Quetiapine Fumarate (Quetiapine Fumarate) 200 MG TABLET 1 Tablet ORAL TAKE AT BEDTIME Qty = 90 Comments: Last Taken: 01/15/18 Time: 8:17 PM Trazodone HCl (Trazodone HCl) 100 MG TABLET 1 Tablet ORAL TAKE AT BEDTIME Qty = 90 Comments: Last Taken: 01/15/18 Time: 8:17 PM Gabapentin (Gabapentin) 300 MG CAPSULE 1 Capsule ORAL THREE TIMES DAILY Qty = 270 Comments: Last Taken: 01/16/18 Time: 1:03 PM Start taking the following new medications: Multivitamin (One Daily Multivitamin) 1 EACH TABLET 1 Tablet ORAL DAILY Qty = 30 No Refills Instructions: , Comments: Last Taken: 01/16/18 Time: 8:53 AM Omeprazole (Omeprazole) 40 MG CAPSULE.DR 1 Capsule ORAL DAILY Qty = 30 No Refills Instructions: , Comments: Last Taken: 01/16/18 Time: 5:18 AM Copies To: Jose Luis RICHARD,Jose Luis; Tracy RICHARD,Nicko Witt Attending MD Review Statement Documenting Attending: Chanel Donnelly MD Other Findings: Discharged in stable condition.
[2018-01-14] VITALS (8 sets, daily range): BP systolic 140–162; BP diastolic 80–102
--- NOTE | 2018-01-14 07:22 | PN- Housestaff ---
See Addendum Subjective Follow-up For: Alcohol withdrawal Leukocytosis Metabolic acidosis secondary to alcoholic ketoacidosis Hypokalemia Hypertension Subjective: seen and examined no compalins no overnight events CIIWA max 10 scoring of agitation and anxiety. Blood pressure went up to 180s/ 100 likely secondary to withdrawal. Patient received 1 mg IV PRN Ativan. The patient continues to complain of odynophagia. Records not received yet. Review of Systems Constitutional: Reports: see HPI. Objective Last 24 Hrs of Vital Signs/I&O Vital Signs Date Time Temp Pulse Resp B/P B/P Pulse O2 O2 Flow FiO2 Mean Ox Delivery Rate 01/14 0642 97.9 74 20 140/96 94 Room Air 01/14 0600 97.4 74 20 140/96 01/14 0000 99.0 87 16 152/80 01/13 2334 99.0 87 16 152/80 93 Room Air 01/13 2256 98.4 86 20 180/98 01/13 2210 98.4 86 20 180/98 95 01/13 1600 98.2 88 20 128/86 01/13 1500 98.2 88 20 128/86 94 Intake & Output 01/14 1600 01/14 0800 01/14 0000 Intake Total 200 600 Output Total Balance 200 600 Intake, Oral 200 600 Physical Exam General Appearance: Alert, Oriented X3, Cooperative Cardiovascular: Normal S1, Normal S2 Lungs: Clear to Auscultation Abdomen: Normal Bowel Sounds, Soft Current Medications: Current Medications Sig/Marielos Start time Last Medication Dose Route Stop Time Status Admin Acetaminophen 325 MG .STK-MED ONE 01/14 2112 DC PO 01/13 2113 Acetaminophen 325 MG Q6P PRN 01/11 1430 01/13 PO 211 Al Hydroxide/Mg 30 ML .STK-MED ONE 01/14 0036 DC Hydroxide PO 01/14 0037 Al Hydroxide/Mg 30 ML ONCE ONE 01/13 2345 DC 01/14 Hydroxide PO 01/13 234 0037 Enoxaparin Sodium 40 MG DAILY 01/11 0900 AC 01/14 SC 0755 Gabapentin 300 MG TID 01/10 2200 AC 01/14 PO 0756 Lidocaine/Diphenhydr/ 15 ML BID 01/11 1418 AC 01/14 Alum/Mg/Simeth PO 0755 Lorazepam 1 MG BID 01/14 2100 UNVr PO Lorazepam 1 MG TID 01/13 1400 DC 01/14 PO 0758 Lorazepam 1 MG TIDAC 01/13 1200 DC PO Lorazepam 1 MG Q4 01/13 1000 DC 01/13 PO 0749 Lorazepam 2 MG Q2P PRN 01/10 1615 AC 01/10 IV 1851 Lorazepam 1 MG Q2P PRN 01/10 1615 AC 01/13 IV 2252 Multivitamins 1 TAB DAILY 01/10 1604 AC 01/14 PO 0756 Nicotine 14 MG DAILY 01/11 1412 AC 01/13 TOP 0748 Omeprazole 40 MG DAILY AC 01/11 1200 AC 01/14 PO 0602 Phosphate 250 MG WM 01/10 2048 AC 01/14 PO 0755 Polyethylene Glycol 17 GM DAILY 01/13 1140 AC 01/14 PO 0755 Potassium Chloride 40 MEQ BID 01/13 2100 DC 01/14 PO 01/14 0901 0756 Quetiapine Fumarate 200 MG QPM 01/11 2100 AC 01/13 PO 2108 Senna 187 MG AT BEDTIME 01/13 2100 AC 01/13 PO 210 Trazodone HCl 100 MG 2100 01/11 2100 AC 01/13 PO 2109 Assessment/Plan Assessment: Patient is a 42-year-old male with past medical history of alcohol abuse, history of alcohol withdrawal, insomnia, depression presenting this admission with complaint of alcohol withdrawal. The patient has been drinking heavily over the past one week with approximately 1 gallon of whiskey daily. Patient's last drink was on day of admission. Patient reports history of alcohol seizures with no history of ICU admission for alcohol withdrawal. Patient was last treated at [facility] for alcohol withdrawal over the past year. Patient is admisted to general medical floor for management of the following: #Alcohol detoxification -Monitoring vitals -CIWA 1-10 (0,0,0,0,3,10,0) -Ativan per CIWA -Ativan decrease to 1 mg BID -Multivitamin Folic acid Thiamine -Monitor for DTs and withdrawal seizures *Social work consult, patient wants to follow up with AA. Does not want to go through inpatient detoxification program. Patient has been counseled to follow- up at [facility] program referral will be provided on discharge #Odynophagia Patient's odynophagia is likely secondary to errosive esophagitis/gastritis in the setting of alcohol abuse. The patient gives history of getting endoscopy in October 2016 when he was admitted at [facility] for her alcohol detoxification for similar complaints odynophagia. We are going to request records. As per patient he was maintained on omeprazole. -records request sent to [facility], awating results - Continue PPI -outpatient GI follow-up #Hypokalemia Likely secondary to alcohol abuse disorder -Monitor and replete as needed #Hypertension upto 180/100 overnight Likely secondary to withdrawal -Continue to monitor -Consider 5 mg at amlodipine is significantly elevated #Tachycardia Again likely secondary to alcohol withdrawal -Continue to monitor #Drop in H&H likely dilutional no evidence of active bleeding #Mild transaminitis-resolved #Leukocytosis likely reactive-resolved #Metabolic acidosis secondary to alcoholic ketoacidosis- resolved #Substance abuse disorder UA was positive for cannabis #Tobacco dependence nicotine patch #Chronic medical conditions Insomnia, seizures and history of depression -Continue gabapentin,quetiapine, Trazodoen #Regular diet/DVT prophylaxis with Lovenox and Alps/full code Problem List: 1. Alcohol abuse Pain Ratin Pain Location: na Pain Goal: Pain 4 or less Pain Plan: prn Tomorrow's Labs & Rationales: none anticipated dc
[2018-01-15 00:42] VITALS: BP 130/80
[2018-01-15 06:46] VITALS: BP 120/76
--- NOTE | 2018-01-15 07:53 | PN- Housestaff ---
Blake RICHARD,[facility] 01/15/18 0752: Subjective Follow-up For: Alcohol detoxification Subjective: The patient seen has been seen and examined. Currently without any complaints. Required 8 mg of Ativan yesterday. last CIWA score 1 home 5, K, 0, 0, 0. We are going to discontinue all active treatment. Patient has been scoring high on anxiety and receiving PRN ativan. CIWA score run low patient is stable to be discharged home tomorrow. Review of Systems Constitutional: Reports: see HPI. Objective Last 24 Hrs of Vital Signs/I&O Vital Signs Date Time Temp Pulse Resp B/P B/P Pulse O2 O2 Flow FiO2 Mean Ox Delivery Rate 01/15 1120 98.2 85 18 130/80 95 Room Air 01/15 0811 98.0 87 18 140/90 96 Room Air 01/15 0646 97.6 74 20 120/76 95 Room Air 01/15 0042 98.2 85 20 130/80 96 Room Air 01/14 2012 98.0 88 20 144/100 97 01/14 2000 99.0 88 20 144/100 01/14 1826 99.0 87 18 162/102 97 01/14 1640 98.0 96 18 160/86 01/14 1437 98.2 88 18 150/90 98 Room Air Intake & Output 01/15 1600 01/15 0800 01/15 0000 Intake Total 240 300 Output Total Balance 240 300 Intake, Oral 240 300 Patient 250 lb Weight Physical Exam General Appearance: Alert, Oriented X3, Cooperative Abdomen: Normal Bowel Sounds, Soft Neurological: Normal Speech Assessment/Plan Assessment: Patient is a 42-year-old male with past medical history of alcohol abuse, history of alcohol withdrawal, insomnia, depression presenting this admission with complaint of alcohol withdrawal. The patient has been drinking heavily over the past one week with approximately 1 gallon of whiskey daily. Patient's last drink was on day of admission. Patient reports history of alcohol seizures with no history of ICU admission for alcohol withdrawal. Patient was last treated at [facility] for alcohol withdrawal over the past year. Patient is admisted to general medical floor for management of the following: #Alcohol detoxification His symptoms of anxiety are about his baseline and are not attributable to alcohol withdrawal. We will hold off of the ativan unless patient needs for severe agitation and anxiety -Monitoring vitals -Multivitamin Folic acid Thiamine -Monitor for DTs and withdrawal seizures *Social work consult, patient wants to follow up with AA. Does not want to go through inpatient detoxification program or [facility] #Odynophagia Patient's odynophagia is likely secondary to errosive esophagitis/gastritis in the setting of alcohol abuse. -continue PPI -outpatient GI follow-up #Hypokalemia Likely secondary to alcohol abuse disorder -Monitor and replete as needed #Hypertension upto 180/100 overnight Likely secondary to withdrawal -Continue to monitor -Consider 5 mg at amlodipine is significantly elevated #Tachycardia Again likely secondary to alcohol withdrawal -Continue to monitor #Drop in H&H likely dilutional no evidence of active bleeding #Mild transaminitis-resolved #Leukocytosis likely reactive-resolved #Metabolic acidosis secondary to alcoholic ketoacidosis- resolved #Substance abuse disorder UA was positive for cannabis #Tobacco dependence nicotine patch #Chronic medical conditions Insomnia, seizures and history of depression -Continue gabapentin,quetiapine, Trazodoen #Regular diet/DVT prophylaxis with Lovenox and Alps/full code Problem List: 1. Alcohol abuse Pain Ratin Pain Location: n/a Pain Goal: Pain 4 or less Pain Plan: prn Tomorrow's Labs & Rationales: polo Hair MD,Martin 01/15/18 1126: Attending MD Review Statement Attending Statement Attending MD Statement: examined this patient, discuss w/resident/PA/RIGGER THIRD, agreed w/resident/PA/RIGGER THIRD, reviewed EMR data (avail), discussed with nursing, discussed with case mgmt Attending Assessment/Plan: Patient seen and examined today. No acute events overnight. Patient denies specific symptoms of alcohol withdrawal in terms of hallucinations, seizures. Patient has been getting ativan - total of 8 mg yesterday. On examination there is no agitation or tremulousness. His CIWA scores have been zero since last night. I feel his symptoms of anxiety are about his baseline and are not attributable to alcohol withdrawal. We will hold off of the ativan unless patient needs for anxiety. Continue with the gabapentin. Patient does not want to go to IOP. He prefers to attend alcohol anonymous. Plan for discharge in the AM.
[2018-01-15 08:11] VITALS: BP 140/90
[2018-01-15 11:20] VITALS: BP 130/80
[2018-01-15] MEDS ORDERED: OMEPRAZOLE40 M1 PO (13:39)
[2018-01-15] MEDS ORDERED: ONE DAILY MULT1 EAC2 PO (13:39)
[2018-01-15 14:11] VITALS: BP 160/90
[2018-01-15 23:55] VITALS: BP 138/82
[2018-01-16 06:39] VITALS: BP 136/90
[2018-01-16 08:45] VITALS: BP 120/90
--- NOTE | 2018-01-16 08:58 | PN- Housestaff ---
Subjective Follow-up For: Alcohol detox Subjective: Patient visited today, was lying in bed comfortably in no acute distress, was alert and oriented. No fever or chills, no shortness of breathing, no chest pain, no other events. Patient was requesting to be discharged, was considerred to be stable patient discharged on home medications. Review of Systems Constitutional: Reports: see HPI. Objective Last 24 Hrs of Vital Signs/I&O Vital Signs Date Time Temp Pulse Resp B/P B/P Pulse O2 O2 Flow FiO2 Mean Ox Delivery Rate 01/16 0845 97.5 79 16 120/90 01/16 0800 Room Air 01/16 0639 97.9 76 18 136/90 96 Room Air 01/15 2355 97.9 90 18 138/82 97 Room Air Intake & Output 01/16 1600 01/16 0800 01/16 0000 Intake Total 480 240 Output Total Balance 480 240 Intake, Oral 480 240 Physical Exam General Appearance: Alert, Oriented X3, Cooperative, No Acute Distress Skin: No Significant Lesion Skin Temp/Moisture Exam: Warm/Dry Cardiovascular: Normal S1, Normal S2 Lungs: Normal Air Movement Abdomen: Soft, No Tenderness Neurological: Normal Speech Extremities: No Edema Current Medications: Current Medications Sig/Marielos Start time Last Medication Dose Route Stop Time Status Admin Acetaminophen 325 MG Q6P PRN 01/11 1430 DCD 01/13 PO 2113 Enoxaparin Sodium 40 MG DAILY 01/11 0900 DCD 01/16 SC 0853 Gabapentin 300 MG TID 01/10 2200 DCD 01/16 PO 1302 Lidocaine/Diphenhydr/ 15 ML BID 01/11 1418 DCD 01/16 Alum/Mg/Simeth PO 0852 Lorazepam 1 MG Q6P PRN 01/15 2030 DCD 01/15 PO 2057 Lorazepam 1 MG ONE ONE 01/15 1645 DC 01/15 PO 01/15 1646 1653 Multivitamins 1 TAB DAILY 01/10 1604 DCD 01/16 PO 0853 Nicotine 14 MG DAILY 01/11 1412 DCD 01/16 TOP 0854 Omeprazole 40 MG DAILY AC 01/11 1200 DCD 01/16 PO 0519 Patient Medication 1 ED ONE ONE 01/15 1730 DC 01/15 Teaching ED 01/15 1731 1728 Phosphate 250 MG WM 01/10 2048 DCD 01/16 PO 1150 Quetiapine Fumarate 200 MG QPM 01/11 2100 DCD 01/15 PO 2016 Senna 187 MG AT BEDTIME 01/13 2100 DCD 01/14 PO 2051 Trazodone HCl 100 MG 01/11 DCD 01/15 PO 2016 Assessment/Plan Assessment: Patient is a 42-year-old male with past medical history of alcohol abuse, history of alcohol withdrawal, insomnia, depression presenting this admission with complaint of alcohol withdrawal. The patient has been drinking heavily over the past one week with approximately 1 gallon of whiskey daily. Patient's last drink was on day of admission. Patient reports history of alcohol seizures with no history of ICU admission for alcohol withdrawal. Patient was last treated at [facility] for alcohol withdrawal over the past year. Patient is admisted to general medical floor for management of the following: #Alcohol detoxification His symptoms of anxiety are about his baseline and are not attributable to alcohol withdrawal. We will hold off of the ativan unless patient needs for severe agitation and anxiety -Monitoring vitals -Multivitamin Folic acid Thiamine -Monitor for DTs and withdrawal seizures *Social work consult, patient wants to follow up with AA. Does not want to go through inpatient detoxification program or [facility] - patient was stable to be discharged #Odynophagia Patient's odynophagia is likely secondary to errosive esophagitis/gastritis in the setting of alcohol abuse. -continue PPI -outpatient GI follow-up #Hypokalemia Likely secondary to alcohol abuse disorder -Monitor and replete as needed #Hypertension upto 180/100 overnight Likely secondary to withdrawal -Continue to monitor -Consider 5 mg at amlodipine is significantly elevated #Tachycardia Again likely secondary to alcohol withdrawal -Continue to monitor #Drop in H&H likely dilutional no evidence of active bleeding #Mild transaminitis-resolved #Leukocytosis likely reactive-resolved #Metabolic acidosis secondary to alcoholic ketoacidosis- resolved #Substance abuse disorder UA was positive for cannabis #Tobacco dependence nicotine patch #Chronic medical conditions Insomnia, seizures and history of depression -Continue gabapentin,quetiapine, Trazodoen #Regular diet/DVT prophylaxis with Lovenox and Alps/full code patient was stable to be discharged with recommendations below: Please follow with your PCP and IOP after discharge. Problem List: 1. Alcohol withdrawal Pain Ratin Pain Location: none Pain Goal: Pain 4 or less Pain Plan: Continue current plan Tomorrow's Labs & Rationales: None
--- NOTE | 2018-01-16 15:09 | PN- Att Addend ---
Attending Addendum Attending Brief Note Patient seen and examined, overall doing well. CIWA scores are running low. Patient already received 1 dose of Ativan last night. He is otherwise stable. Patient medically stable for discharge today and he will follow-up with AA meetings. He will be continued on his home medications and should follow-up with his primary care doctor as an outpatient.
[2018-01-17] MEDS ORDERED: NEURONTIN300 M1 PO (17:29)
== END 2018-01-16 13:15 | DRG 897 ==
LOC: ERH 11:09 → 2NA 15:33 → ERHI 15:33 → ENRESERV 18:12 → ENTRNSPT 18:50 → EDTRNSPTSTS 19:10 → 2NA 19:15 → CMPTRNSPT 19:40 → 2NA 01-11 08:09 → ENPENDDIS 01-16 11:29 → 2NA 01-16 13:15
PROVIDERS: Physician Assistant Medical; Student in an Organized Health Care Education/Training Program
DX: F10.239 Alcohol dependence with withdrawal, unspecified (principal); E87.2 Acidosis; R56.9 Unspecified convulsions; F31.9 Bipolar disorder, unspecified; R13.10 Dysphagia, unspecified; K29.20 Alcoholic gastritis without bleeding; F41.9 Anxiety disorder, unspecified; F12.10 Cannabis abuse, uncomplicated; F90.9 Attention-deficit hyperactivity disorder, unspecified type; K20.8 Other esophagitis; G47.00 Insomnia, unspecified; E87.6 Hypokalemia; K52.9 Noninfective gastroenteritis and colitis, unspecified; D72.829 Elevated white blood cell count, unspecified; I10 Essential (primary) hypertension; R00.0 Tachycardia, unspecified; F17.200 Nicotine dependence, unspecified, uncomplicated
CPT/HCPCS: 2NASP; 36592; 71046; 80307; 81001; 82436; 93005; 93010; 96361; 96374; 96375; 96376; G0480; J1650; J2405; J3490; J7120

== ENCOUNTER 2018-01-17 14:09 | Emergency (ER) | payer OTHER ==
[~2018-01-17] VITALS: Ht 185.4 cm; Wt 117.9 kg
[~2018-01-17 14:09] MED LIST changes: +GABAPENTIN300 M2 PO; +OMEPRAZOLE40 M1 PO; +ONE DAILY MULT1 EAC2 PO; +QUETIAPINE FUM200 M1 PO; +TRAZODONE HCL100 M1 PO
[2018-01-17 15:53] LABS: ABSOLUTE BASOPHIL COUNT 0.1 /CUMM (0.0-0.2); ABSOLUTE EOSINOPHIL COUNT 0.1 /CUMM (0.0-0.7); ABSOLUTE GRANULOCYTE CT 5.5 /CUMM (1.4-6.5); ABSOLUTE LYMPH COUNT 1.2 /CUMM (1.2-3.4); BASOPHIL % 0.7 % (0.0-2.0); EOSINOPHIL % 0.8 % (0-5); GRANULOCYTE % 70.1 % (42.2-75.2); HEMATOCRIT 44.4 % (42-52); MEAN CORPUSCULAR HGB 28.6 PG (27.0-31.0); MEAN CORPUSCULAR HGB CONC 34.4 G/DL (33.0-37.0); MEAN CORPUSCULAR VOLUME 83.2 FL (80.0-94.0); MEAN PLATELET VOLUME 7.4 FL (7.4-10.4); PLATELET COUNT 240 /CUMM (130-400); RBC DISTRIBUTION WIDTH 14.5 % (11.5-14.5); RED BLOOD CELL CT 5.33 /CUMM (4.70-6.10); WHITE BLOOD CELL COUNT 7.8 /CUMM (4.8-10.8)
--- NOTE | 2018-01-17 16:22 | ED GENERAL ADULT ---
History of Present Illness General Chief Complaint: Headache Stated Complaint: DISCHARGED FROM DETOX [facility] HAS HIGH BP AND MITCHELL Source: patient, family (MOM & DAD PRESENT) Exam Limitations: no limitations Vital Signs & Intake/Output Vital Signs & Intake/Output Vital Signs Date Time Temp Pulse Resp B/P B/P Pulse O2 O2 Flow FiO2 Mean Ox Delivery Rate 01/17 1745 97.5 85 18 141/85 01/17 1742 97.5 85 18 141/85 96 01/17 1606 98.1 86 18 140/96 01/17 1606 98.1 86 18 140/96 96 Room Air Room Air 01/17 1422 98.2 88 18 159/92 01/17 1422 98.2 88 18 159/92 99 Room Air 01/17 1420 90 176/97 Allergies Coded Allergies: No Known Allergies (02/26/16) Reconcile Medications Gabapentin 300 MG CAPSULE 1 CAP PO TID SEIZURES (Reported) Gabapentin (Neurontin) 300 MG CAPSULE 1 CAP PO BID ETOH Multivitamin (One Daily Multivitamin) 1 EACH TABLET 1 TAB PO DAILY supplement , Omeprazole 40 MG CAPSULE.DR 1 CAP PO DAILY stomach , Quetiapine Fumarate 200 MG TABLET 1 TAB PO QHS MENTAL HEALTH/SLEEP (Reported) Trazodone HCl 100 MG TABLET 1 TAB PO QHS MENTAL HEALTH/SLEEP (Reported) Triage Note: 42M RECENTLY [facility], AVERAGES A PINT TO A GALLON OF HARD ETOH PER DAY. LAST DRINK WAS A WEEK AGO. WAS TAPERED ON ATIVAN WHILE IN HOSPITAL, WENT HOME YESTERDAY AND COULDNT SLEEP AND TOOK BP TODAY AND NOTED IT WAS ELEVATED. APPEARS FLUSHED IN TRIAGE, DIAPHORETIC WITH HEADACHE, +N/-V POOR APPETITE. HX WITHDRAWAL SEIZURES, DENIES DT'S. Triage Nurses Notes Reviewed? yes Onset: Morning Duration: constant, BETTER SINCE ATIVAN GIVEN IN ED Timing: recent history HPI: 42-year-old male presents with history of alcohol abuse and bipolar disorder. Was seen recently in this hospital for alcohol withdrawal, admitted on 01-10-18 and discharged yesterday on 01-16-18. Presents today with reports this morning of having chills, headache, overall not feeling well. Patient states he was in this hospital yesterday and when he left he felt fine. Reports this morning he had an episode of vomiting. He has eaten food since then and has been able to keep it down. He denies any chest pain or shortness of breath. Patient reports his last drink was about one week ago. He reports drinking about 1 pint of whiskey daily. He also reports tobacco use about one pack per day for 26 years. He also reports marijuana use about once per week. He denies any other illicit drug use. He was given ativan since being in this emergency department today and reports feeling better since then, although headache continues. He reports a history of elevated cholesterol and high blood pressure to which he has never been on medications for. He was told to follow up outpatient with PCP last visit on discharge and he did not follow up yet. (Pablo Delgadillo) Past History Travel History Traveled to [place] past 21 day No Medical History Any Pertinent Medical History? see below for history Neurological: NONE EENT: NONE Cardiovascular: HIGH CHOLESTEROL, high blood pressure Respiratory: NONE Gastrointestinal: NONE Hepatic: NONE Renal: NONE Musculoskeletal: NONE Psychiatric: alcohol dependence, bipolar disease (? ), opioid dependence, substance abuse (hard alcohol), ADHD Endocrine: NONE Blood Disorders: NONE Cancer(s): NONE GAS PUMPER/Reproductive: NONE History of MRSA: No History of VRE: No History of CDIFF: No Surgical History Surgical History: WISDOM TEETH REMOVAL Psychosocial History Who do you live with Patient/Self Services at Home None What is your primary language Serbian Tobacco Use: Current Daily Use Daily Tobacco Use Amount/Type: => 5 Cigarettes daily ETOH Use: alcoholic Illicit Drug Use: marijuana Family History Family History, If Any: MOTHER (HLD). Hx Contributory? No (Pablo Delgadillo) Review of Systems Review of Systems Constitutional: Reports: see HPI. EENTM: Reports: no symptoms. Respiratory: Reports: no symptoms. Cardiovascular: Reports: no symptoms. GI: Reports: no symptoms. Genitourinary: Reports: no symptoms. Musculoskeletal: Reports: no symptoms. Skin: Reports: no symptoms. Neurological/Psychological: Reports: see HPI. Hematologic/Endocrine: Reports: no symptoms. Immunologic/Allergic: Reports: no symptoms. All Other Systems: Reviewed and Negative (Pablo Delgadillo) Physical Exam Physical Exam General Appearance: well developed/nourished, no apparent distress, alert, awake , comfortable Head: atraumatic, normal appearance Eyes: Bilateral: normal appearance, PERRL, EOMI. Ears, Nose, Throat: normal ENT inspection, hearing grossly normal Neck: normal inspection, full range of motion Respiratory: normal breath sounds, chest non-tender, no respiratory distress Cardiovascular: regular rate/rhythm Gastrointestinal: soft, non-tender Back: normal inspection Neurologic/Psych: no motor/sensory deficits, awake, alert, oriented x 3, normal mood/affect Skin: intact, normal color, warm/dry Core Measures ACS in differential dx? No CVA/TIA Diagnosis: No Sepsis Present: No Sepsis Focused Exam Completed? No (Pablo Delgadillo) Progress Differential Diagnoses I considered the following diagnoses in my evaluation of the patient: dehydration, alcohol withdrawal, tension headache vs migraine. Plan of Care: Orders Procedure Date/time Status TROPONIN LEVEL 01/17 1534 Complete ETHANOL 01/17 1534 Complete COMPREHENSIVE METABOLIC PANEL 01/17 1534 Complete CBC WITHOUT DIFFERENTIAL 01/17 1534 Complete EKG 01/17 1534 Active Laboratory Tests 01/17/18 1546: Anion Gap 12, Estimated GFR > 60, BUN/Creatinine Ratio 20.0, Glucose 104 H, Calcium 9.7, Total Bilirubin 1.0, AST 32, ALT 61, Alkaline Phosphatase 109, Troponin I < 0.01, Total Protein 7.4, Albumin 4.5, Globulin 2.9, Albumin/ Globulin Ratio 1.6, CBC w Diff NO MAN DIFF REQ, RBC 5.33, MCV 83.2, MCH 28.6, MCHC 34.4, RDW 14.5, MPV 7.4, Gran % 70.1, Lymphocytes % 15.3 L, Monocytes % 13.1 H, Eosinophils % 0.8, Basophils % 0.7, Absolute Granulocytes 5.5, Absolute Lymphocytes 1.2, Absolute Monocytes 1.0 H, Absolute Eosinophils 0.1, Absolute Basophils 0.1, Serum Alcohol < 10.0 Initial ED EKG: normal sinus rhythm, rate (75) (Pablo Delgadillo) Departure Departure Disposition: HOME OR SELF CARE Condition: Stable Clinical Impression Primary Impression: History of ETOH abuse Secondary Impressions: Headache Referrals: Patient Has No Primary Care Dr (PCP/Family) Additional Instructions: Take Neurontin as prescribed. Follow-up with [facility] facility. Number is [phone]. Follow-up with your primary care DrGayla cam. Return if any other concerns worsening symptoms. Please go over all results of today's visit with your primary care doctor. Contact your primary care doctor to let them know you were here in the emergency room. There may be nonspecific findings which may not be related to your visit today here in the emergency room but may require further evaluation and chronic monitoring by your primary care doctor. If you had a laceration today the chance of foreign body always remains. You should follow-up with your primary care doctor for recheck in 3-5 days for a wound check. If you had an x-ray done there is a chance that a fracture could have been missed on initial read and you should follow-up with your primary care doctor for repeat x-rays if symptoms persist. If your blood pressure was elevated here in the emergency room please have rechecked by natasha primary care doctor within the next 48. If you were prescribed a narcotic here in the emergency room or any type of controlled substances you're not allowed to drive while taking this medication or operate any type of heavy machinery. Narcotics can make you feel lightheaded dizziness nausea and can cause constipation. You may need to picker box operator a stool softener. Thank you for choosing [facility] emergency room. Please return to the emergency room immediately if you have any other concerns worsening of symptoms. Departure Forms: Customer Survey General Discharge Information Prescriptions: Current Visit Scripts Gabapentin (Neurontin) 1 CAP PO BID #[id number] CAP Comments 01/17/2018 6:24:42 PM Patient's symptoms have resolved. He clinically looks well. He already had a medical detox. Patient was provided information for outpatient detox centers. Patient was prescribed Neurontin. Safe for discharge at this time. Case discussed with Dr. Sepulveda. EtOH negative. At this time patient is asymptomatic and ready for discharge. (Braeden CHEUNG,Pablo) PA/RATOPRINTER Co-Sign Statement Statement: ED Attending supervision documentation- [] I saw and evaluated the patient. I have also reviewed all the pertinent lab results and diagnostic results. I agree with the findings and the plan of care as documented in the PA's/RATOPRINTER's documentation. [X] I have reviewed the ED Record and agree with the PA's/RATOPRINTER's documentation. [] Additions or exceptions (if any) to the PAs/RATOPRINTER's note and plan are summarized below: [] (Coco RICHARD,Nicko Romo) Critical Care Note Critical Care Note Critical Care Time: non-applicable (Braeden CHEUNG,Pablo)
[2018-01-17] MEDS ORDERED: NEURONTIN300 M1 PO (17:29)
[2018-01-17 17:45] VITALS: BP 141/85
== END 2018-01-17 17:47 ==
LOC: ERH 14:09
PROVIDERS: Physician Assistant Medical
DX: R51 Headache (principal)
CPT/HCPCS: 93005; 93010; G0480

== ENCOUNTER 2018-01-21 19:12 | Emergency (ER) | payer OTHER ==
[~2018-01-21] VITALS: Ht 185.4 cm; Wt 117.9 kg
[~2018-01-21 19:12] MED LIST changes: +NEURONTIN300 M1 PO
[2018-01-21 20:23] LABS: ABSOLUTE BASOPHIL COUNT 0 /CUMM (0.0-0.2); ABSOLUTE EOSINOPHIL COUNT 0 /CUMM (0.0-0.7); ABSOLUTE GRANULOCYTE CT 9.4 /CUMM (1.4-6.5); ABSOLUTE LYMPH COUNT 2.2 /CUMM (1.2-3.4); ABSOLUTE MONOCYTE COUNT 1.5 /CUMM (0.10-0.60); BASOPHIL % 0.2 % (0.0-2.0); EOSINOPHIL % 0.2 % (0-5); GRANULOCYTE % 71.2 % (42.2-75.2); HEMATOCRIT 49.3 % (42-52); MEAN CORPUSCULAR HGB 28.3 PG (27.0-31.0); MEAN CORPUSCULAR HGB CONC 33.8 G/DL (33.0-37.0); MEAN CORPUSCULAR VOLUME 83.7 FL (80.0-94.0); MEAN PLATELET VOLUME 7.1 FL (7.4-10.4); PLATELET COUNT 349 /CUMM (130-400); RBC DISTRIBUTION WIDTH 14.3 % (11.5-14.5); RED BLOOD CELL CT 5.89 /CUMM (4.70-6.10)
[2018-01-21 20:24] LABS: WHITE BLOOD CELL COUNT 13.1 /CUMM (4.8-10.8)
--- NOTE | 2018-01-21 21:06 | ED PSYCHIATRIC COMPLAINT ---
History of Present Illness General Chief Complaint: ETOH/Drug Related Complaint Stated Complaint: DETOXING FROM ETOH Source: patient Exam Limitations: no limitations Vital Signs & Intake/Output Vital Signs & Intake/Output Vital Signs Date Time Temp Pulse Resp B/P B/P Pulse O2 O2 Flow FiO2 Mean Ox Delivery Rate 01/22 0640 98.7 94 18 122/69 01/22 0640 98.7 94 18 122/69 97 Room Air 01/22 0426 98.6 96 18 117/72 01/22 0426 98.6 96 18 117/72 96 Room Air 01/22 0243 98.6 97 18 114/68 01/22 0242 98.6 97 18 114/68 95 Room Air 01/22 0035 98.8 83 18 145/95 01/22 0034 98.8 83 18 145/95 98 Room Air 01/21 2242 98.4 84 18 141/78 01/21 2239 98.4 84 18 141/78 97 Room Air ED Intake and Output 01/22 0000 01/21 1200 Intake Total 1000 Output Total Balance 1000 Intake, IV 1000 Patient 260 lb Weight Allergies Coded Allergies: No Known Allergies (02/26/16) Reconcile Medications Gabapentin 300 MG CAPSULE 1 CAP PO TID SEIZURES (Reported) Gabapentin (Neurontin) 300 MG CAPSULE 1 CAP PO BID ETOH Multivitamin (One Daily Multivitamin) 1 EACH TABLET 1 TAB PO DAILY supplement , Omeprazole 40 MG CAPSULE.DR 1 CAP PO DAILY stomach , Quetiapine Fumarate 200 MG TABLET 1 TAB PO QHS MENTAL HEALTH/SLEEP (Reported) Trazodone HCl 100 MG TABLET 1 TAB PO Q MENTAL HEALTH/SLEEP (Reported) Triage Note: PT TO TRIAGE [email or web address] "[facility] DIDNT LIKE HOW MY VITALS LOOKED." PT STATES USUALLY DRINKS 1PINT-1LITER WHISKEY DAILY, LAST DRINK AFTER MIDNIGHT LAST NIGHT. [email or web address] 3PM CHINO 0.04. PT REPORTS HAS DETOXED HERE AT [facility] IN THE PAST. Triage Nurses Notes Reviewed? yes Onset: Abrupt Duration: day(s): Timing: recent history HPI: 42-year-old male comes into the emergency room sent in by [facility] for medical clearance. Patient has a history of alcoholism. He reports that he has a history of seizure withdrawal. His last drink was yesterday. His blood pressure was found to be high while he was at the [facility] facility. He's had some shakiness. He has a history of bipolar depression. Comes in for further evaluation. (Pablo Delgadillo) Past History Travel History Traveled to [place] past 21 day No Medical History Any Pertinent Medical History? see below for history Neurological: NONE EENT: NONE Cardiovascular: HIGH CHOLESTEROL high blood pressure Respiratory: NONE Gastrointestinal: NONE Hepatic: NONE Renal: NONE Musculoskeletal: NONE Psychiatric: alcohol dependence, bipolar disease (? ), opioid dependence, substance abuse (hard alcohol), ADHD Endocrine: NONE Blood Disorders: NONE Cancer(s): NONE PROPOSAL CONSULTANT/Reproductive: NONE History of MRSA: No History of VRE: No History of CDIFF: No Surgical History Surgical History: WISDOM TEETH REMOVAL Psychosocial History Who do you live with Patient/Self Services at Home None What is your primary language Sierra Leonean Tobacco Use: Current Daily Use Daily Tobacco Use Amount/Type: =< 4 Cigarettes daily ETOH Use: heavy use Illicit Drug Use: marijuana Family History Family History, If Any: MOTHER (HLD). Hx Contributory? No (Pablo Delgadillo) Review of Systems Review of Systems Constitutional: Reports: no symptoms. EENTM: Reports: no symptoms. Respiratory: Reports: no symptoms. Cardiovascular: Reports: no symptoms. GI: Reports: no symptoms. Genitourinary: Reports: no symptoms. Musculoskeletal: Reports: no symptoms. Skin: Reports: no symptoms. Neurological/Psychological: Reports: see HPI. Hematologic/Endocrine: Reports: no symptoms. Immunologic/Allergic: Reports: no symptoms. All Other Systems: Reviewed and Negative (Pablo Delgadillo) Physical Exam Physical Exam General Appearance: well developed/nourished, mild distress Head: atraumatic Eyes: Bilateral: normal appearance, EOMI. Ears, Nose, Throat: normal ENT inspection, hearing grossly normal Neck: normal inspection Respiratory: no respiratory distress Cardiovascular: regular rate/rhythm, tachycardia Gastrointestinal: soft, non-tender Extremities: normal range of motion Neurological/Psychiatric: awake, alert Appearance/Memory/Insight: appropriate appearance Behavoir/Eye Contact/Speech: cooperative Skin: intact, normal color, warm/dry (Pablo Delgadillo) SAD PERSONS Done? patient not suicidal (Carrie RICHARD,Jaret Gray) Progress Differential Diagnosis: dementia, drug intoxication, drug overdose, drug withdrawal, encephalitis, hypoglycemia, hypothyroidism Plan of Care: Orders Procedure Date/time Status Regular Diet 01/22 B Active Hand-Off Endorsed To: Jaret Butler MD Endorsed Time: 2232 Pending: other (high watch) (Pablo Delgadillo) Departure Departure Condition: Stable Referrals: Patient Has No Primary Care Dr (PCP/Family) Departure Forms: Customer Survey General Discharge Information (Pablo Delgadillo) Departure Disposition: HOME OR SELF CARE Clinical Impression Primary Impression: Alcoholism PA/FLAT SCREEN WORKER Co-Sign Statement Statement: ED Attending supervision documentation- [] I saw and evaluated the patient. I have also reviewed all the pertinent lab results and diagnostic results. I agree with the findings and the plan of care as documented in the PA's/FLAT SCREEN WORKER's documentation. []x I have reviewed the ED Record and agree with the PA's/FLAT SCREEN WORKER's documentation. [] Additions or exceptions (if any) to the PAs/FLAT SCREEN WORKER's note and plan are summarized below: [] (Jraet Butler MD) Phosphatase 130 H, Total Protein 8.6 H, Albumin 5.4 H, Globulin 3.2, Albumin/ Globulin Ratio 1.7, CBC w Diff NO MAN DIFF REQ, RBC 5.89, MCV 83.7, MCH 28.3, MCHC 33.8, RDW 14.3, MPV 7.1 L, Gran % 71.2, Lymphocytes % 16.8 L, Monocytes % 11.6 H, Eosinophils % 0.2, Basophils % 0.2, Absolute Granulocytes 9.4 H, Absolute Lymphocytes 2.2, Absolute Monocytes 1.5 H, Absolute Eosinophils 0, Absolute Basophils 0, Serum Alcohol < 10.0 (Jaret Butler MD) Departure Departure Condition: Stable Referrals: Patient Has No Primary Care Dr (PCP/Family) Departure Forms: Customer Survey General Discharge Information (Pablo Delgadillo) Departure Disposition: HOME OR SELF CARE Clinical Impression Primary Impression: Alcoholism (Jaret Butler MD) Customer Survey General Discharge Information (Pablo Delgadillo) Departure Disposition: HOME OR SELF CARE Clinical Impression Primary Impression: Alcoholism (Jaret Butler MD)
[2018-01-22 06:40] VITALS: BP 122/69
== END 2018-01-22 07:06 ==
LOC: ERH 19:12
PROVIDERS: Physician Assistant Medical
DX: F10.20 Alcohol dependence, uncomplicated (principal)
CPT/HCPCS: 80307; G0480